=== PATIENT | female | born 1990 | race Asian ===

== ENCOUNTER 2020-11-12 22:33 | Emergency (ER) | payer OTHER ==
[2020-11-12 22:52] VITALS: BP 129/94
--- NOTE | 2020-11-12 23:00 | ED Physician Documentation ---
PD HPI FEMALE - Stated complaint Stated Complaint: MISSING IUD STRING - Chief complaint Chief Complaint: General - History obtained from History obtained from: Patient - History of Present Illness Timing - onset: How many days ago (5) Timing - duration: Days (5) Timing - details: Still present (she states she did a regular vaginal check for IUD string and was not able to feel it. No noted vaginal clots/discharge. Had normal recent menses without excess pain nor bleeding. Has nausea and vomiting twice today without abd pain today.) Associated symptoms: No: Fever, Dysuria Contributing factors: IUD (unable to feel string though. Has had the IUD for 1 1/2 years without problems.). No: Recently seen: Clinic (She states went to Walk In 4 days ago due to unable to feel IUD string, and had pelvic exam without finding the string, had UA and preg test that were normal. Patient states she was told no signs of vaginitis on exam. 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 - Present Medications Home Medications: Ambulatory Orders Medication Instructions Recorded Confirmed No Known Home Medications 11/12/20 11/12/20 - Allergies Allergies/Adverse Reactions: Allergies Allergy/AdvReac Type Severity Reaction Status Date / Time No Known Drug Allergies Allergy Verified 11/12/20 22:52 PD ED PE NORMAL - Vitals Vital signs reviewed: Yes - General General: Alert and oriented X 3, No acute distress, Well developed/nourished - Cardiac Cardiac: RRR, No murmur - Respiratory Respiratory: Clear bilaterally - Abdomen Abdomen: Soft, Non tender - Female Female : Deferred (just had one 4 days ago), Other (bedside U/S by me showed IUD in uterus. ) Results - Vitals Vitals: Vital Signs - 24 hr 11/12/20 22:49 Temperature 36.5 C Heart Rate 94 Respiratory 16 Rate Blood Pressure 129/94 H O2 Saturation 100 Oxygen O2 Source Room air PD MEDICAL DECISION MAKING - ED course Complexity details: considered differential (She was concerned about the IUD being in place or malposition. Simple bedside ultrasound showed it mid uterus without any obvious malposition. I think her current nausea is unrelated to the string being on palpable. Concern could be for vaginitis/preg but had normal pelvic exam/HCG 4 days ago.), d/w patient Departure - Departure Disposition: 01 Home, Self Care Clinical Impression: Nausea, IUD (intrauterine device) in place Condition: Stable Record reviewed to determine appropriate education?: Yes Follow-Up: ALAINA Gee [Provider Group] Comments: Your IUD appears in place by simple bedside ultrasound. Its not unusual to not be able to feel the strings at times. You can follow-up with your licensed architect routinely or at least discuss it with the office and see if they need to follow-up with you about it. Discharge Date/Time: 11/12/20 23:46
[2020-11-12] MEDS ORDERED: ONDANSETRON ODT 4 MG TABLET TL STA (23:21)
== END 2020-11-12 23:46 | disposition home or self-care (01) ==
LOC: ED 22:33
DX: Z30.431 Encounter for routine checking of intrauterine contraceptive device (principal); R11.2 Nausea with vomiting, unspecified
CPT/HCPCS: 99282; 99283; Q0162

== ENCOUNTER 2023-05-08 10:37 | Emergency (ER) | payer OTHER ==
--- NOTE | 2023-05-08 11:46 | ED Physician Documentation ---
PD HPI URI - Stated complaint Stated Complaint: CONGESTION,CONTRERAS - Chief complaint Chief Complaint: Heent - History obtained from History obtained from: Patient, Family - History of Present Illness Timing - onset: How many days ago (2) Timing duration: Days (2) Timing details: Gradual onset Pain level max: 3 Pain level now: 3 Associated symptoms: Fever, Nasal congestion, Rhinorrhea, Sore throat, Dry cough Contributing factors: Sick contact Recently seen: Not recently seen - Additional information Additional information: Patient is a 33-year-old female who presents to the emergency department complaining of nasal congestion and sinus pressure for the past 2 days. She states that she had a fever yesterday. Has a mild sore throat. Feels like her ears are "popping". Has been around other people sick with similar. Has not taken anything at home for her symptoms. Denies any possibility of . Is not breast-feeding. 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 - Past Surgical History Past Surgical History: No - Present Medications Home Medications: Ambulatory Orders Medication Instructions Recorded Confirmed Benzonatate [Tessalon] 200 mg PO TID PRN #30 cap 05/08/23 Cetirizine HCl/Pseudoephedrine 1 tab PO BID PRN #20 tab 05/08/23 [Zyrtec-D ER 5 mg-120 mg Tablet] - Allergies Allergies/Adverse Reactions: Allergies Allergy/AdvReac Type Severity Reaction Status Date / Time No Known Drug Allergies Allergy Verified 05/08/23 11:03 - Social History Does the pt smoke?: No Smoking Status: Never smoker PD ED PE NORMAL - Vitals Vital signs reviewed: Yes - General General: Alert and oriented X 3, No acute distress - HEENT HEENT: PERRL, Ears normal, Moist mucous membranes, Pharynx benign - Neck Neck: Supple, no meningeal sign, No adenopathy, No JVD, No bruit - Cardiac Cardiac: RRR, Strong equal pulses - Respiratory Respiratory: No respiratory distress, Clear bilaterally, Other (no wheezing, no stridor) - Abdomen Abdomen: Soft, Non tender, Non distended - Back Back: No CVA TTP, No spinal TTP - Derm Derm: Warm and dry - Extremities Extremities: No edema - Neuro Neuro: Alert and oriented X 3 - Psych Psych: Normal mood, Normal affect Results - Vitals Vitals: Vital Signs - 24 hr 05/08/23 05/08/23 11:01 11:52 Temperature 36.7 C 36.7 C Heart Rate 90 88 Respiratory 16 16 Rate Blood Pressure 133/90 H 132/88 H O2 Saturation 100 99 Oxygen O2 Source Room air - Labs Labs: Laboratory Tests 05/08/23 11:06 Nasal Adenovirus (PCR) NOT DETECTED Nasal B. parapertussis DNA (PCR) NOT DETECTED Nasal Coronavir 229E PCR NOT DETECTED Nasal Coronavir HKU1 PCR NOT DETECTED Nasal Coronavir NL63 PCR DETECTED A Nasal Coronavir OC43 PCR NOT DETECTED Nasal Enterovir/Rhinovir PCR NOT DETECTED Nasal Influenza B PCR NOT DETECTED Nasal Influenza A PCR NOT DETECTED Nasal Parainfluen 1 PCR NOT DETECTED Nasal Parainfluen 2 PCR NOT DETECTED Nasal Parainfluen 3 PCR NOT DETECTED Nasal Parainfluen 4 PCR NOT DETECTED Nasal RSV (PCR) NOT DETECTED Nasal B.pertussis DNA PCR NOT DETECTED Nasal C.pneumoniae (PCR) NOT DETECTED [place] Human Metapneumo PCR NOT DETECTED Nasal M.pneumoniae (PCR) NOT DETECTED Nasal SARS-CoV-2 (PCR) NOT DETECTED PD Medical Decision Making - ED course Complexity details: reviewed results, re-evaluated patient, considered d ifferential, d/w patient ED course: Patient is well-appearing, nontoxic. Afebrile. No hypoxia. No respiratory distress. No otitis media. No evidence of strep pharyngitis clinically. Appears to be mostly bothered by the nasal congestion. Will place on decongestants and cough medication. Respiratory PCR is pending at the time of discharge. Patient is tolerating p.o. without difficulty here. No indication for imaging. No evidence of sepsis. Patient counseled regarding signs and symptoms for which I believe and urgent re-evaluation would be necessary. Patient with good understanding of and agreement to plan and is comfortable going home at this time This document was made in part using voice recognition software. While efforts are made to proofread this document, sound alike and grammatical errors may occur. Respiratory PCR is positive for non-COVID coronavirus NL 63. Departure - Departure Disposition: 01 Home, Self Care Clinical Impression: Viral URI Condition: Good Instructions: ED Viral Syndrome Follow-Up: your,doctor in 1 week [Other] Prescriptions: Benzonatate [Tessalon] 200 mg PO TID PRN #30 cap PRN Reason: Cough Cetirizine HCl/Pseudoephedrine [Zyrtec-D ER 5 mg-120 mg Tablet] 1 tab PO BID PRN #20 tab PRN Reason: nasal congestion Comments: Your prescriptions were sent to [facility] in [place]. Please use the me dication as prescribed. This appears to be a viral illness. This will usually last for about 7 to 14 days. The decongestants will help with the sinus pressure as well as the sore throat and ear popping. There are no signs of a bacterial infection at this time that would require antibiotics. Please follow- up with your doctor for further care. You can check the results of your respiratory swab on the patient portal website. Go to [email or web address] This will take you to the sign and/create account page. You can then view your hospital/ER results Forms: PCP List Discharge Date/Time: 05/08/23 11:53
[2023-05-08 11:54] VITALS: BP 132/88; O2SAT 99
[2023-05-08 11:59] LABS: B. PARAPERTUSSIS- RESP PCR PAN NOT DETECTED; B. PERTUSSIS- RESP PCR PANEL NOT DETECTED; C. PNEUMONIAE- RESP PCR PANEL NOT DETECTED; CORONAVIRUS 229E-RESP PCR NOT DETECTED; CORONAVIRUS HKU1-RESP PCR NOT DETECTED; CORONAVIRUS NL63-RESP PCR DETECTED; CORONAVIRUS OC43-RESP PCR NOT DETECTED; HUMAN METAPNEUMOVIRUS NOT DETECTED; INFLUENZA A- RESP PCR PANEL NOT DETECTED; INFLUENZA B - RESP PCR PANEL NOT DETECTED; M. PNEUMONIAE- RESP PCR PANEL NOT DETECTED; PARAINFLUENZA VIRUS 1 NOT DETECTED; PARAINFLUENZA VIRUS 2 NOT DETECTED; PARAINFLUENZA VIRUS 3 NOT DETECTED; PARAINFLUENZA VIRUS 4 NOT DETECTED; RHINOVIRUS/ENTEROVIRUS NOT DETECTED; RSV- RESP PCR PANEL NOT DETECTED; SARS-CoV-2 -RESP PCR PANEL NOT DETECTED
== END 2023-05-08 11:53 | disposition home or self-care (01) ==
LOC: ED 10:37
DX: J06.9 Acute upper respiratory infection, unspecified (principal); Z11.52 Encounter for screening for COVID-19
CPT/HCPCS: 87633; 99283